=== PATIENT | female | born 2000 | race Caucasian/White ===

== ENCOUNTER 2022-05-10 09:16 | Emergency (ER) | payer MEDICAID ==
[~2022-05-10] VITALS: Ht 165.1 cm; Wt 60.1 kg
[2022-05-10 09:40] VITALS: BP 130/79
--- NOTE | 2022-05-10 09:50 | NUR ---
Patient ambulated to bed 2 with steady gait.
--- NOTE | 2022-05-10 10:24 | NUR ---
22 y/o female bib self with c/o abdominal pain x 2 months. Per patient her abdominal pain is intermittent. Patient has nausea and vomiting. Patient also reports diarrhea earlier during her pain. Report no diarrhea at this time. Patient denies eating any new food or being around anyone who is sick. Medical History: Seizures
--- NOTE | 2022-05-10 11:00 | NUR ---
Dr. Jeffery evaluating patient at bedside.
--- NOTE | 2022-05-10 11:07 | NUR ---
Per patient she is allergic to a seizure medication called Tragenol. Medication is unknown.
--- NOTE | 2022-05-10 11:08 | NUR ---
Chart checked and completed. The patient's care was reviewed and supervised by Kinga Newell RN.
[2022-05-10] MEDS ORDERED: BEN10 PO (11:13)
[2022-05-10] MEDS ORDERED: ONDA-188 SL (11:13)
[2022-05-10] MEDS ORDERED: FAMO-90 PO (11:13)
[2022-05-10 11:45] VITALS: BP 123/65
== END 2022-05-10 11:45 | disposition home or self-care (01) ==
LOC: MED 09:16
DX: R10.9 Unspecified abdominal pain (principal); R11.2 Nausea with vomiting, unspecified; Z79.899 Other long term (current) drug therapy
CPT/HCPCS: 81002; 81025; 99283